=== PATIENT | female | born 1945 | race African-American/Black ===

== ENCOUNTER 2017-09-11 08:02 | Emergency (ER) | payer MEDICARE, OTHER ==
[~2017-09-11] VITALS: Ht 165.1 cm; Wt 93.0 kg
[2017-09-11] MEDS ORDERED: PREG75CA PO (08:25)
[2017-09-11] MEDS ORDERED: ASPI-1159 PO (08:25)
[2017-09-11] MEDS ORDERED: SITA1TAB6 PO (08:25)
[2017-09-11] MEDS ORDERED: MELO-104 PO (08:25)
[2017-09-11] MEDS ORDERED: REPA1TAB5 PO (08:25)
[2017-09-11] MEDS ORDERED: NIFE60TA64 PO (08:25)
[2017-09-11] MEDS ORDERED: BENA1TAB19 PO (08:25)
[2017-09-11] MEDS ORDERED: TAP5 PO (08:25)
[2017-09-11] MEDS ORDERED: LEVEMIR (08:25)
[2017-09-11] MEDS ORDERED: ROSU40TA21 PO (08:25)
[2017-09-11] MEDS ORDERED: IBUPROFEN 600MG TABLET PO ONE (11:00)
[2017-09-11 13:06] VITALS: BP 166/78
== END 2017-09-11 13:22 | disposition home or self-care (01) ==
LOC: ER 08:49
DX: S30.0XXA Contusion of lower back and pelvis, initial encounter (principal); M25.562 Pain in left knee; W10.8XXA Fall (on) (from) other stairs and steps, initial encounter; Y93.89 Activity, other specified; Y92.89 Other specified places as the place of occurrence of the external cause; I12.0 Hypertensive chronic kidney disease with stage 5 chronic kidney disease or end stage renal disease; E11.22 Type 2 diabetes mellitus with diabetic chronic kidney disease; N18.6 End stage renal disease; Z99.2 Dependence on renal dialysis; Z79.899 Other long term (current) drug therapy
CPT/HCPCS: 72220; 73562; 99284